=== PATIENT | female | born 1985 | race Caucasian/White ===

== ENCOUNTER → 2019-04-29 | Outpatient (REF) | payer OTHER ==
[2019-04-29 18:34] LABS: HEMATOCRIT 42.5 % (36.0-47.0); HEMOGLOBIN 14.5 g/dl (12.0-15.5); MEAN CORPUSCULAR HEMOGLOBIN 29.7 pg (27.0-33.0); MEAN CORPUSCULAR HGB CONC 34.1 g/dl (32.0-36.5); MEAN CORPUSCULAR VOLUME 87.1 fl (80.0-96.0); PLATELET COUNT, AUTOMATED 245 10^3/uL (150-450); RED BLOOD COUNT 4.88 10^6/uL (4.00-5.40)
[2019-04-29 21:55] LABS: HCG, SERUM QUANTITATIVE 31706 MIU/ML
[2019-04-30 10:19] LABS: RUBELLA IgG QUALITATIVE IMMUNE (IMMUNE)
[2019-04-30 10:47] LABS: HEPATITIS C VIRUS ABY INDEX 0.1 INDEX (<0.8)
[2019-04-30 10:48] LABS: HIV 1&2 SCREEN CENTAUR NEGATIVE (NEGATIVE)
== END ==
LOC: M LAB REF 17:25
PROVIDERS: ATTEND Nurse Practitioner Women's Health
DX: O36.80X0 Pregnancy with inconclusive fetal viability, not applicable or unspecified (principal); Z3A.00 Weeks of gestation of pregnancy not specified

== ENCOUNTER → 2019-09-28 | Outpatient (CLI) | payer OTHER ==
[2019-09-28 14:11] LABS: HEMOGLOBIN 12.5 g/dl (12.0-15.5); MEAN CORPUSCULAR HEMOGLOBIN 30.9 pg (27.0-33.0); MEAN CORPUSCULAR HGB CONC 32.9 g/dl (32.0-36.5); MEAN CORPUSCULAR VOLUME 94.1 fl (80.0-96.0); PLATELET COUNT, AUTOMATED 224 10^3/uL (150-450); RED BLOOD COUNT 4.04 10^6/uL (4.00-5.40); WHITE BLOOD COUNT 9.7 10^3/uL (4.0-10.0)
== END ==
LOC: M WUC 11:39
PROVIDERS: ATTEND Nurse Practitioner Women's Health
DX: O99.212 Obesity complicating pregnancy, second trimester (principal); Z3A.00 Weeks of gestation of pregnancy not specified

== ENCOUNTER 2019-12-12 03:27 | Inpatient (IN) | payer OTHER ==
[~2019-12-12] VITALS: Ht 162.6 cm; Wt 101.6 kg
[2019-12-12] MEDS ORDERED: OXYTOCIN 30 UNITS IN 0.9% NaCl 500ML IV BAG (J2590) As Ordered ONE (04:37)
[2019-12-12] MEDS ORDERED: LACTATED RINGER'S 1000 ML IV STA (05:04)
[2019-12-12] MEDS ORDERED: LR 1,000 ML IV SCH (05:04)
[2019-12-12] MEDS ORDERED: OXYTOCIN DRIP 30 UNITS in IV 1 EA IV SCH (05:08)
[2019-12-12] MEDS ORDERED: MEASLES,MUMPS,RUBELLA VACCINE INJ (MMR-II) (90707) SC SCH (05:15)
[2019-12-12] MEDS ORDERED: IBUPROFEN 600 MG TAB PO PRN (05:15)
[2019-12-12] MEDS ORDERED: ACETAMINOPHEN TAB 650MG DOSE (2X325MG) PO PRN (05:15)
[2019-12-12] MEDS ORDERED: RHOGAM 300 MCG (1500 IU) INJ (J2790) IM SCH (05:15)
[2019-12-12] MEDS ORDERED: IBUPROFEN 800 MG TAB PO PRN (05:15)
[2019-12-12] MEDS ORDERED: METHYLERGONOVINE MALEATE 0.2 MG TAB PO PRN (05:15)
[2019-12-12] MEDS ORDERED: ACETAMINOPHEN 500 MG TAB PO PRN (05:15)
[2019-12-12] MEDS ORDERED: DOCUSATE SODIUM 100 MG CAP PO PRN (05:15)
[2019-12-12] MEDS ORDERED: DIBUCAINE 1% OINTMENT 30GM TOP PRN (05:15)
[2019-12-12 05:25] LABS: HEMATOCRIT 42.7 % (36.0-47.0); HEMOGLOBIN 14.1 g/dl (12.0-15.5); MEAN CORPUSCULAR VOLUME 90.9 fl (80.0-96.0); PLATELET COUNT, AUTOMATED 205 10^3/uL (150-450); WHITE BLOOD COUNT 13.2 10^3/uL (4.0-10.0)
[2019-12-12 06:35] VITALS: BP 130/76
--- NOTE | 2019-12-12 08:16 | HPE ---
DATE OF ADMISSION: 12/12/2019 Azul is a 33-year-old female, 5, para 3-0-1-3, with an estimated date of confinement (EDC) of 12/10/2019, estimated gestational age (EGA) of 40-2/7 weeks gestation, who presented to labor and delivery in active labor. Upon admission, she was found to be 6-7 cm dilated and progressed to fully dilated very rapidly with spontaneous rupture of membranes. Decision made for admission, and record reviewed, which was essentially remarkable. Blood type is A positive, rubella immune, hepatitis negative, HIV negative. GC/chlamydia negative. 1-hour sugar testing was within normal limits. Her group B streptococcus (GBS) was negative. PAST MEDICAL HISTORY: Significant for obesity. PAST SURGICAL HISTORY: Denies. SOCIAL HISTORY: Patient is a smoker. Denies any alcohol or drug use. FAMILY HISTORY: Unremarkable. MEDICATION: vitamin. ALLERGIES: To PENICILLIN. PHYSICAL EXAMINATION: Obese female in acute distress. Abdomen: Soft, nontender, nondistended. Extremities: No clubbing, cyanosis, or edema. ASSESSMENT: Intrauterine at 40-2/7 weeks gestation, in active labor with spontaneous rupture of membranes. PLAN: Admit patient to labor and delivery. Anticipate delivery.
--- NOTE | 2019-12-12 08:18 | DN ---
DATE: 12/12/2019 Azul is a 33-year-old female, 5, para 3-0-1-3 who was admitted to labor and delivery in active labor. She quickly had spontaneous rupture of membranes, had a precipitous delivery in bed, delivered a live female over an intact perineum. scores 8 and 9, weight 6 pounds 8 ounces. Upon my arrival, placenta delivered spontaneously intact. The perineum, vagina and cervix were inspected. No laceration noted. Estimated blood loss was 250 mL. Both mother and baby in good condition.
[2019-12-12] MEDS: PRENATAL VITAMINS CHEWABLE TABLET PO SCH (08:36)
[2019-12-12 18:16] VITALS: BP 137/72
[2019-12-13 06:00] VITALS: BP 119/66
[2019-12-13] MEDS: PRENATAL VITAMINS CHEWABLE TABLET PO SCH (08:25)
[2019-12-13] MEDS ORDERED: ADACEL/BOOSTRIX VACCINE (DIPHTH/PERTUSS/ACELL/TETANUS)0.5ML SYR (90715) IM ONE (09:00)
[2019-12-13 17:52] VITALS: BP 133/75
[2019-12-14 05:43] VITALS: BP 120/69
[2019-12-14] MEDS: PRENATAL VITAMINS CHEWABLE TABLET PO SCH (09:07)
== END 2019-12-14 11:44 | disposition home or self-care (01) | DRG 560 ==
LOC: M LDO 03:27 → EEVIPCON 03:27 → M LDI 04:24 → M OBS 06:24
PROVIDERS: ADMIT Obstetrics & Gynecology; ATTEND Obstetrics & Gynecology
PROC: 10E0XZZ Delivery of Products of Conception, External Approach (ICD-10-PCS; principal; 2019-12-12)
DX: O48.0 Post-term pregnancy (principal); Z3A.40 40 weeks gestation of pregnancy; Z37.0 Single live birth; O99.214 Obesity complicating childbirth; E66.9 Obesity, unspecified; O99.334 Smoking (tobacco) complicating childbirth; O62.3 Precipitate labor; F17.210 Nicotine dependence, cigarettes, uncomplicated

== ENCOUNTER 2020-01-01 20:41 | Emergency (ER) | payer OTHER ==
[~2020-01-01] VITALS: Ht 162.6 cm; Wt 93.7 kg
[2020-01-01] MEDS ORDERED: PREN1CHW6 PO (20:48)
[2020-01-01] MEDS ORDERED: ACETAMINOPHEN 325 MG TAB PO ONE (21:15)
[2020-01-01 21:49] LABS: INFLUENZA A AMPLIFICATION NEGATIVE (NEGATIVE); INFLUENZA B AMPLIFICATION NEGATIVE (NEGATIVE)
[2020-01-01] MEDS ORDERED: AZIT-12 PO (21:52)
[2020-01-01 21:57] VITALS: BP 105/56
== END 2020-01-01 22:12 | disposition home or self-care (01) ==
LOC: M ED 20:41
DX: J01.90 Acute sinusitis, unspecified (principal); F17.200 Nicotine dependence, unspecified, uncomplicated; Z79.899 Other long term (current) drug therapy; Z88.0 Allergy status to penicillin; Z88.1 Allergy status to other antibiotic agents

== ENCOUNTER 2021-04-13 00:08 | Emergency (ER) | payer OTHER ==
[~2021-04-13] VITALS: Ht 162.6 cm; Wt 100.4 kg
[~2021-04-13 00:08] MED LIST: AZIT-12 PO; PREN1CHW6 PO
[2021-04-13] MEDS ORDERED: CLEO300C2 PO (02:03)
[2021-04-13] MEDS ORDERED: LIDO2SOL17 PO (02:03)
[2021-04-13] MEDS ORDERED: KETO10TAB PO (02:03)
[2021-04-13] MEDS ORDERED: CLINDAMYCIN 150MG CAPSULE PO ONE (02:05)
[2021-04-13] MEDS ORDERED: KETOROLAC TROMETHAMINE 10 MG TAB PO ONE (02:05)
[2021-04-13] MEDS ORDERED: LIDOCAINE VISCOUS 2% SOLN 15ML UDC SSP ONE (02:05)
[2021-04-13 02:22] VITALS: BP 153/88
== END 2021-04-13 02:44 | disposition home or self-care (01) ==
LOC: M ED 00:08
DX: K04.7 Periapical abscess without sinus (principal); F17.200 Nicotine dependence, unspecified, uncomplicated; Z88.0 Allergy status to penicillin

== ENCOUNTER 2021-09-29 00:23 | Emergency (ER) | payer OTHER ==
[~2021-09-29] VITALS: Ht 162.6 cm; Wt 93.2 kg
[~2021-09-29 00:23] MED LIST changes: +CLEO300C2 PO; +KETO10TAB PO; +LIDO2SOL17 PO
[2021-09-29 00:26] VITALS: BP 143/72
--- OUTSIDE RECORDS SUMMARY | 2021-09-29 00:33 | CCD ---
Author Author [facility] Organization [facility] Address Unknown Phone Unavailable Support Name Relationship Address Phone Ana Bean Next Of Kin [address] [id number] Adithya Carrasco MD Next Of Kin [address] [place] [address] Joey BAILEY, Lorraine Godfrey Next Of Kin [address] [place], [place] [id number] [place] [address] BELA BARBER Next Of Kin [address] [place] [address] UE Next Of Kin Unknown Unavailable Re-disclosure Warning The records that you are about to access may contain information from federally-assisted alcohol or drug abuse programs. If such information is present, then the following federally mandated warning applies: This information has been disclosed to you from records protected by federal confidentiality rules (42 CFR part 2). The federal rules prohibit you from making any further disclosure of this information unless further disclosure is expressly permitted by the written consent of the person to whom it pertains or as otherwise permitted by 42 CFR part 2. A general authorization for the release of medical or other information is NOT sufficient for this purpose. The Federal rules restrict any use of the information to criminally investigate or prosecute any alcohol or drug abuse patient.The records that you are about to access may contain highly sensitive health information, the redisclosure of which is protected by Article 27-F of the [facility] Public Health law. If you continue you may have access to information: Regarding HIV / AIDS; Provided by facilities licensed or operated by the [facility] Office of Mental Health; or Provided by the [facility] Office for People With Developmental Disabilities. If such information is present, then the following [facility] mandated warning applies: This information has been disclosed to you from confidential records which are protected by state law. State law prohibits you from making any further disclosure of this information without the specific written consent of the person to whom it pertains, or as otherwise permitted by law. Any unauthorized further disclosure in violation of state law may result in a fine or chcf sentence or both. A general authorization for the release of medical or other information is NOT sufficient authorization for further disc losure. Encounters Encounter Providers Location Date Indications Data Source(s ) Outpatient 07/24/2021 10:28:15 AM EDT - 021 12:43:30 PM EDT [facility] ([facility]) Immunizations Vaccine Date Status Description Data Source(s) COVID-19 VACCINE Moderna 04/19/2021 12:00:00 AM EDT completed [facility] Vaccine Series Complete: YESThis Data wa s Submitted to [facility] Via [employer]. COVID-19 VACCINE Moderna 03/22/2021 12:00:00 AM EDT completed [facility] Vaccine Series Complete: NOThis Data was Submitted to [facility] Via [employer]. Medications No Information Insurance Providers Payer name Policy type / Coverage type Policy ID Covered democrat ID Covered democrat's relationship to bentley Policy [place] Plan Information Managed Care Christo P [id number] S [id number] Medicaid S [id number] Managed Care [place]o P UNAVAILABLE S UNAVAILABLE Medicaid S [place]NA[place] [id number] S [id number] Self Pay O UNAVAILABLE S [place] [id number] Problems, Conditions, and Diagnoses No Information Surgeries/Procedures No Information Results No Information Social History No Information
--- OUTSIDE RECORDS SUMMARY | 2021-09-29 02:15 | CCD ---
Author Author [facility] Organization [facility] Address Unknown Phone Unavailable Support Name Relationship Address Phone FARIHA Next Of Kin [address] [place] [address] Ana Bean Next Of Kin [address] [place] [address] Adithya Carrasco MD Next Of Kin [address] [place] [address] Lorraine Jaime Next Of Kin [address] [place], [place] [phone] ALEXX [place] [address] BELA BARBER Next Of Kin [address] [phone] UE Next Of Kin Unknown Unavailable Re-disclosure [...] is protected by Article 27-F of the [facility] Public Health law. If you continue you may have access to information: Regarding HIV / AIDS; Provided by facilities licensed or operated by the [facility] Office of Mental Health; or Provided by the [facility] Office for People With Developmental Disabilities. If such information is present, then the following [facility] mandated warning applies: This information has been [...] EDT - 021 12:43:30 PM EDT [facility] ([facility]) Immunizations Vaccine Date Status Description Data Source(s) COVID-19 VACCINE Moderna 04/19/2021 12:00:00 AM EDT completed [facility] Vaccine Series Complete: YESThis Data wa s Submitted to [facility] Via [employer]. COVID-19 VACCINE Moderna 03/22/2021 12:00:00 AM EDT completed [facility] Vaccine Series Complete: NOThis Data was Submitted to [facility] Via [employer]. Medications No Information Insurance Providers Payer name Policy type / Coverage type Policy ID Covered republican ID Covered republican's relationship to bentley Policy [place] Plan Information Managed Care Christo P [id number] S [id number] Medicaid S [id number] S [id number] Managed Care [place] P UNAVAILABLE S UNAVAILABLE Medicaid S UNAVAILABLE S UNAVAILA [place] CARE [facility] [id number] S [id number] Self Pay O UNAVAILABLE S U[place] [id number] SP [id number] Problems, Conditions, and Diagnoses No Information Surgeries/Procedures No Information Results No Information Social History No Information
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
== END 2021-09-29 02:37 | disposition home or self-care (01) ==
LOC: M ED 00:23
DX: S93.401A Sprain of unspecified ligament of right ankle, initial encounter (principal); V00.181A Fall from other rolling-type pedestrian conveyance, initial encounter; Y92.410 Unspecified street and highway as the place of occurrence of the external cause; Y93.9 Activity, unspecified; Y99.9 Unspecified external cause status; F17.200 Nicotine dependence, unspecified, uncomplicated; Z88.0 Allergy status to penicillin; Z88.1 Allergy status to other antibiotic agents; Z79.899 Other long term (current) drug therapy

== ENCOUNTER 2023-10-19 20:50 | Emergency (ER) | payer OTHER ==
[~2023-10-19] VITALS: Ht 160 cm; Wt 107.3 kg
[~2023-10-19 20:50] MED LIST changes: +LIDO15SO PO; -LIDO2SOL17 PO
[2023-10-19] MEDS ORDERED: CEFDINIR 300 MG CAP (OMNICEF) PO ONE (22:20)
[2023-10-19] MEDS ORDERED: CEFD1CAP9 PO (22:24)
[2023-10-19] MEDS ORDERED: FLON27.5 NARES (22:24)
[2023-10-19] MEDS ORDERED: PSEU-52 PO (22:24)
[2023-10-19 22:33] VITALS: BP 131/66; TEMP 98.1; O2SAT 98
== END 2023-10-19 22:33 | disposition home or self-care (01) ==
LOC: M ED 20:50
DX: H66.42 Suppurative otitis media, unspecified, left ear (principal); H72.92 Unspecified perforation of tympanic membrane, left ear; Z88.0 Allergy status to penicillin; Z88.1 Allergy status to other antibiotic agents